=== PATIENT | male | born 1950 | race Caucasian/White ===

== ENCOUNTER 2018-08-07 06:22 | Day surgery (SDC) | payer OTHER | END 2018-08-07 15:45 | disposition home or self-care (01) | LOC: AMB-ENDOS 06:22 | DX: C20 Malignant neoplasm of rectum (principal) ==

== ENCOUNTER 2018-09-11 05:00 | Day surgery (SDC) | payer OTHER | END 2018-09-11 12:55 | disposition home or self-care (01) | LOC: CIR.AMB 05:00 | DX: C20 Malignant neoplasm of rectum (principal) | CPT/HCPCS: 36561; C1751 ==

== ENCOUNTER 2019-02-03 08:45 | Inpatient (IN) | payer OTHER ==
[~2019-02-03] VITALS: Ht 165.1 cm; Wt 64.0 kg
[2019-02-03] MEDS ORDERED: PRILOSEC10 MG PO (11:39)
[2019-02-03] MEDS ORDERED: ZANTAC150 M3 PO (11:39)
[2019-03-05] MEDS ORDERED: TAMSULOSIN HCL0.4 MG PO (13:54)
[2019-03-05] MEDS ORDERED: ZOLPIDEM TARTRA10 MG PO (13:55)
[2019-03-05] MEDS ORDERED: SIMETHICONE125 M1 PO (13:55)
[2019-03-05] MEDS ORDERED: PANTOPRAZOLE SO40 MG PO (13:55)
[2019-03-05] MEDS ORDERED: PERCOCET 5-3251 EACH PO (13:56)
[2019-03-05] MEDS ORDERED: PRE PROTEIN 2030 ML PO (14:00)
== END 2019-03-05 15:57 | disposition home or self-care (01) | DRG 333 ==
LOC: O/R 08:45 → SURH 02-10 06:00 → O/R 02-10 06:00 → SURH 02-10 14:10
PROVIDERS: ADMIT Surgery
PROC: 0DJD8ZZ Inspection of Lower Intestinal Tract, Via Natural or Artificial Opening Endoscopic (ICD-10-PCS; 2019-02-10)
PROC: 0DBP4ZZ Excision of Rectum, Percutaneous Endoscopic Approach (ICD-10-PCS; principal; 2019-02-10 07:00)
PROC: 0DH67UZ Insertion of Feeding Device into Stomach, Via Natural or Artificial Opening (ICD-10-PCS; 2019-02-16)
PROC: 3E0G76Z Introduction of Nutritional Substance into Upper GI, Via Natural or Artificial Opening (ICD-10-PCS; 2019-02-16)
PROC: 0D7 Gastrointestinal System, Dilation (ICD-10-PCS; 2019-02-20)
PROC: 02HV33Z Insertion of Infusion Device into Superior Vena Cava, Percutaneous Approach (ICD-10-PCS; 2019-02-21)
PROC: 3E0336Z Introduction of Nutritional Substance into Peripheral Vein, Percutaneous Approach (ICD-10-PCS; 2019-02-21)
DX: C20 Malignant neoplasm of rectum (principal); K91.31 Postprocedural partial intestinal obstruction; E44.0 Moderate protein-calorie malnutrition; K62.89 Other specified diseases of anus and rectum; K21.9 Gastro-esophageal reflux disease without esophagitis; I10 Essential (primary) hypertension; E87.6 Hypokalemia; E83.39 Other disorders of phosphorus metabolism; F43.22 Adjustment disorder with anxiety

== ENCOUNTER 2019-02-06 06:50 | Day surgery (SDC) | payer OTHER ==
[~2019-02-06 06:50] MED LIST: PRILOSEC10 MG PO; ZANTAC150 M3 PO
== END 2019-02-06 12:38 | disposition home or self-care (01) ==
LOC: AMB-ENDOS 06:50
DX: K62.7 Radiation proctitis (principal)

== ENCOUNTER 2019-07-15 10:28 | Inpatient (IN) | payer OTHER ==
[~2019-07-15] VITALS: Ht 165.1 cm; Wt 59.9 kg
[~2019-07-15 10:28] MED LIST changes: +PANTOPRAZOLE SO40 MG PO; +PERCOCET 5-3251 EACH PO; +PRE PROTEIN 2030 ML PO; +SIMETHICONE125 M1 PO; +TAMSULOSIN HCL0.4 MG PO; +ZOLPIDEM TARTRA10 MG PO
--- NOTE | 2019-07-15 10:45 | NUR ---
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 PTE CON HX CANCER COLORECTAL.
--- NOTE | 2019-07-15 11:54 | NUR ---
PACIENTE ALERTA,ACTIVO Y ORIENTADO.SE ORIENTA DE TRATAMIENTO NATI ORDEN MEDICA REFIERE ENTENDER.SE CANALIZA,SE JOSE MUESTRAS Y SE ADMINISTRAN MEDICAMENTOS CON MEDIDAS ASEPTICAS CORRESPONDIENTES.SE MONITOREA POR CAMBIOS.
--- NOTE | 2019-07-15 15:13 | NUR ---
SE RECIBE PTE ALERTA Y ORIENTADO EN LAS 3 ESFERAS EN CAMA CON BARANDAS ELEVADAS POR SEGURIDAD. BUEN PATRON RESPIRATORIO. RECIBIENDO IV'S D5W 0.45NACL BAJANDO A 125ML/HR POR VENOPUNCION GRACE DE EDEMA Y ERITEMA EN BRAZO BLAKE. PENDIENTE CT ABDOMEN/PELVICO PO PARA LAS 4:10PM. SE MANTIENE EN OBSERVACION.
== END 2019-07-18 11:14 | disposition home or self-care (01) | DRG 394 ==
LOC: ER 10:28 → SURH 18:09
PROVIDERS: ADMIT Surgery
PROC: 0DH67UZ Insertion of Feeding Device into Stomach, Via Natural or Artificial Opening (ICD-10-PCS; 2019-07-15)
PROC: 3E0G76Z Introduction of Nutritional Substance into Upper GI, Via Natural or Artificial Opening (ICD-10-PCS; 2019-07-15)
PROC: BW21Y0Z Computerized Tomography (CT Scan) of Abdomen and Pelvis using Other Contrast, Unenhanced and Enhanced (ICD-10-PCS; 2019-07-15)
PROC: 0D7Q8ZZ Dilation of Anus, Via Natural or Artificial Opening Endoscopic (ICD-10-PCS; principal; 2019-07-17)
DX: K94.09 Other complications of colostomy (principal); C20 Malignant neoplasm of rectum; E44.0 Moderate protein-calorie malnutrition; K62.4 Stenosis of anus and rectum; K80.80 Other cholelithiasis without obstruction; N20.0 Calculus of kidney

== ENCOUNTER 2019-11-20 11:58 | Inpatient (IN) | payer OTHER ==
[~2019-11-20] VITALS: Ht 162.6 cm; Wt 60.8 kg
== END 2019-12-19 10:45 | disposition expired | DRG 347 ==
LOC: SURG 11-26 06:10 → O/R 11-26 06:10 → SURH 11-26 09:00 → SURG 11-26 13:25 → ICU 12-02 13:41
PROVIDERS: ADMIT Surgery; ATTEND Surgery
PROC: 0DBB4ZZ Excision of Ileum, Percutaneous Endoscopic Approach (ICD-10-PCS; principal; 2019-11-26 09:00)
PROC: 05HY33Z Insertion of Infusion Device into Upper Vein, Percutaneous Approach (ICD-10-PCS; 2019-11-29)
PROC: 3E0F7GC Introduction of Other Therapeutic Substance into Respiratory Tract, Via Natural or Artificial Opening (ICD-10-PCS; 2019-12-01)
PROC: 5A1955Z Respiratory Ventilation, Greater than 96 Consecutive Hours (ICD-10-PCS; 2019-12-03)
PROC: 0BH17EZ Insertion of Endotracheal Airway into Trachea, Via Natural or Artificial Opening (ICD-10-PCS; 2019-12-03)
DX: C20 Malignant neoplasm of rectum (principal); J18.9 Pneumonia, unspecified organism; A41.9 Sepsis, unspecified organism; R65.21 Severe sepsis with septic shock; K92.2 Gastrointestinal hemorrhage, unspecified; J95.89 Other postprocedural complications and disorders of respiratory system, not elsewhere classified; J90 Pleural effusion, not elsewhere classified; D62 Acute posthemorrhagic anemia; Z99.11 Dependence on respirator [ventilator] status; E87.0 Hyperosmolality and hypernatremia; K56.690 Other partial intestinal obstruction; E27.49 Other adrenocortical insufficiency; K62.7 Radiation proctitis; K21.9 Gastro-esophageal reflux disease without esophagitis; E87.6 Hypokalemia; E83.39 Other disorders of phosphorus metabolism; F43.20 Adjustment disorder, unspecified; N40.0 Benign prostatic hyperplasia without lower urinary tract symptoms; Z93.2 Ileostomy status; R50.82 Postprocedural fever; D64.9 Anemia, unspecified